=== PATIENT | female | born 1970 | race Caucasian/White ===

== ENCOUNTER 2020-11-20 17:37 | Emergency (ER) | payer OTHER ==
[~2020-11-20] VITALS: Ht 167.6 cm; Wt 56.7 kg
[2020-11-20 17:49] VITALS: BP 196/111
[2020-11-20] MEDS ORDERED: MOBIC7.5 MG PO (19:02)
== END 2020-11-20 19:00 | disposition home or self-care (01) ==
LOC: ER 17:37
DX: R07.89 Other chest pain (principal); Z98.890 Other specified postprocedural states; W01.0XXA Fall on same level from slipping, tripping and stumbling without subsequent striking against object, initial encounter; Y93.89 Activity, other specified; Y92.89 Other specified places as the place of occurrence of the external cause; Y99.8 Other external cause status